=== PATIENT | male | born 1960 | race American Indian/Alaskan Native ===

== ENCOUNTER 2021-05-14 09:06 | Emergency (ER) | payer SELFPAY ==
[2021-05-14] MEDS ORDERED: MECLIZINE 25 MG TAB PO ONE (09:20)
[2021-05-14] MEDS ORDERED: SODIUM CHLORIDE 0.9% 1000 ML 1,000 ML IV ONE (09:22)
[2021-05-14] MEDS ORDERED: ONDANSETRON 4 MG/2 ML INJ IV ONE (09:22)
--- NOTE | 2021-05-14 09:26 | Emergency Department Report ---
HPI - General Chief Complaint: Dizziness Time Seen by Provider: 05/14/21 09:08 - HPI HPI: 60-year-old -[place] male presents to the emergency department via EMS from home with complaint of some dizziness/lightheadedness that started this morning. It is associated with some nausea without vomiting. He denies any headache, vision change, slurred speech, numbness or paresthesias, chest pain, shortness of breath, abdominal pain. He denies any past medical history but also admits that he does not follow with a primary care physician and has not for "many years." He did not take anything for symptoms prior to presentation. He describes the dizziness/lightheadedness as "if I am going to pass out." Overall the patient just says "I feel bad." No recent travel or sick contacts at home. Patient denies any tobacco or illicit drug use. He denies any history of daily alcohol use or dependence. ED Past Medical Hx - Past Medical History Previous Medical History?: No - Surgical History Past Surgical History?: No - Medications Home Medications: Home Medications Medication Instructions Recorded Confirmed Last Taken Type Meclizine [Antivert] 25 mg PO TID PRN #15 tablet 05/14/21 Unknown Rx ED Review of Systems ROS: Stated complaint: DIZZINESS Other details as noted in HPI Comment: All other systems reviewed and negative Constitutional: weakness. denies: chills, fever Eyes: denies: eye pain, vision change ENT: denies: ear pain, throat pain Respiratory: denies: cough, shortness of breath Cardiovascular: denies: chest pain, palpitations Gastrointestinal: nausea. denies: abdominal pain, vomiting Genitourinary: denies: dysuria, discharge Musculoskeletal: denies: back pain, arthralgia Skin: denies: rash, lesions Neurological: other (Dizziness/lightheadedness). denies: headache Physical Exam - Physical Exam Vital Signs: Vital Signs 05/14/21 09:09 Temperature 97 F L Pulse Rate 69 Respiratory 16 Rate Blood Pressure 155/78 [Left] O2 Sat by Pulse 100 Oximetry Physical Exam: GENERAL: The patient is well-developed well-nourished. HENT: Normocephalic. Atraumatic. Patient has moist mucous membranes. EYES: Extraocular motions are intact. Pupils equal reactive to light bilaterally. Horizontal nystagmus. NECK: Supple. Trachea is midline. CHEST/LUNGS: Clear to auscultation. There is no respiratory distress noted. HEART/CARDIOVASCULAR: Regular. There is no tachycardia. There is no murmur. ABDOMEN: Abdomen is soft, nontender. Patient has normal bowel sounds. There is no abdominal distention. SKIN: Skin is warm and dry. NEURO: The patient is awake, alert, and oriented. The patient is cooperative. The patient has no focal neurologic deficits. Normal speech. No facial asymmetry. Cranial nerves II through XII grossly intact. MUSCULOSKELETAL: There is no tenderness or deformity. There is no limitation range of motion. ED Course Vital Signs 05/14/21 09:09 Temperature 97 F L Pulse Rate 69 Respiratory 16 Rate Blood Pressure 155/78 [Left] O2 Sat by Pulse 100 Oximetry ED Medical Decision Making - Lab Data Result diagrams: 05/14/21 09:27 05/14/21 09:27 - EKG Data -: EKG Interpreted by In EKG shows normal: sinus rhythm, axis (Left axis deviation), intervals, QRS complexes (Q waves to the septal and inferior leads), ST-T waves (Nonspecific ST-T waves) Rate: normal - EKG Data When compared to previous EKG there are: previous EKG unavailable Interpretation: other (Sinus rhythm at 62 bpm, left axis deviation, normal inte rvals, Q waves to the septal and inferior leads. Nonspecific ST T waves.) - Radiology Data Radiology results: report reviewed CT head/brain wo con INDICATION / CLINICAL INFORMATION: 60 years Male; dizziness, lightheaded. TECHNIQUE: Routine CT head without contrast. All CT scans at this location are performed using CT dose reduction for ALARA by means of automated exposure control. COMPARISON: None. FINDINGS: BRAIN / INTRACRANIAL CONTENTS: The brain parenchyma appears to demonstrate appropriate attenuation for age. The ventricular system is within normal limits in size and configuration. There is no clear CT evidence of acute intracranial hemorrhage or significant mass effect. ORBITS: No significant abnormality of visualized orbits. SINUSES / MASTOIDS: There is mild mucosal thickening within the ethmoid air cells along the visualized inferior maxillary sinuses. CRANIOCERVICAL JUNCTION: No significant abnormality. ADDITIONAL FINDINGS: None. IMPRESSION: 1. There is no CT evidence of acute intracranial process. CT angio head INDICATION / CLINICAL INFORMATION: 60 years Male; Dizziness, Lightheaded, evaluate posterior circ 100 ml omni 350. TECHNIQUE: Thin cut axial images obtained through the head during IV bolus contrast administration. Sagittal, coronal, and 3 plane MIP reconstructions performed by the technologist. NASCET type criteria used evaluate stenoses. Automated exposure control utilized for radiation reduction purposes. COMPARISON: None available. FINDINGS: INTERNAL CAROTID ARTERIES: There is no significant focal stenosis involving distal internal carotid arteries by NASCET criteria. 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 There is no significant focal narrowing of the basilar artery. CEREBRAL ARTERIES: There is hypoplasia of the A1 segment of the right AMALIA which also represents a developmental variant. There is no significant stenosis involving proximal cerebral arteries or evidence of large vessel occlusion. ANEURYSM: The findings appear most consistent with incidental infundibulum of the left posterior communicating artery at. ADDITIONAL FINDINGS: Small mucosal thickening within the ethmoid and inferior maxillary sinuses. IMPRESSION: There is no CTA evidence of large vessel occlusion CT angio neck INDICATION / CLINICAL INFORMATION: 60 years Male; Dizziness, Lightheaded, evaluate posterior circ 100 ml omni 350 . TECHNIQUE: Thin cut axial images obtained through the head during IV bolus contrast administration. Sagittal, coronal, and 3 plane MIP reconstructions performed by the technologist. NASCET type criteria used evaluate stenoses. All CT scans at this location are performed using CT dose reduction for ALARA by means of automated exposure control. COMPARISON: None available. FINDINGS: CAROTID ARTERIES: The motion and beam hardening degrade the image quality. However, there is no significant stenosis involving the cervical carotid arteries by NASCET criteria. 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 The left vertebral artery is clearly dominant without significant focal narrowing. ARCH: There is no significant stenosis of the arch vessels. ADDITIONAL FINDINGS: Remainder of the surrounding soft tissues are grossly normal. IMPRESSION: There is no significant stenosis involving cervical carotid arteries by NASCET to criteria. 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 - Medical Decision Making This patient presented to the emergency department with a complaint of some dizziness/lightheadedness, nausea without vomiting, and feeling like he was going to pass out. On examination he does not have any focal, motor or sensory deficits and his cranial nerves are intact. EKG did not show any morphology consistent with ST elevation myocardial infarction. Chest x-ray does not show any pneumonia, pleural effusions, pneumothorax, widened mediastinum, or any other acute process. CT of the head without contrast does not show any hemorrhage, large vessel occlusion, or any other acute process. Labs have been mostly unremarkable including CBC, metabolic panel, normal thyroid function, negative troponin. The patient does have some slight hyperglycemia with a blood sugar of about 200 but there is no elevation of the anion gap and I do not have concern for diabetic ketoacidosis. The patient did not complain of any headache or any other strokelike symptoms but did have this dizziness/lightheadedness, near syncope, and had horizontal nystagmus. He was given some IV fluid resuscitation, Zofran, and a dose of meclizine. The patient had a CT angiography of the head and neck to look into possible posterior circulation stroke or occlusion but it resulted as negative. The patient was reevaluated multiple times over multiple hours and appears improved and the patient says "I am feeling great." He was seen ambulatory in the emergency department and both appears and feels stable. He will be discharged home to follow-up with primary care and has been given a prescription for some meclizine. He will return to the emergency department with any worsening of symptoms or with any acute distress. Critical Care Time: No Critical care attestation.: If time is entered above; I have spent that time in minutes in the direct care of this critically ill patient, excluding procedure time. ED Disposition Clinical Impression: Dizziness, Lightheaded Disposition: 01 HOME / SELF CARE / HOMELESS Is pt being admited?: No Condition: Stable Instructions: Near-Syncope, [id number], Dizziness Additional Instructions: Please follow-up with a primary care physician in the next few days. I have given you a referral for a local primary care physician, Dr. Fonseca, and a [facility]. Return to the emergency department with any worsening of your symptoms, new or concerning symptoms not addressed during this current emergency department visit, or with any acute distress. Prescriptions: Meclizine [Antivert] 25 mg PO TID PRN #15 tablet PRN Reason: Vertigo Referrals: ESTEFANIA FONSECA MD [Staff Physician] - 3-5 Days [facility] [Provider Group] - 3-5 Days Forms: Work/School Release Form(ED) Time of Disposition: 13:11
--- NOTE | 2021-05-14 09:51 | XRay Report ---
XR chest 1V ap INDICATION / CLINICAL INFORMATION: weakness. COMPARISON: None available. FINDINGS: SUPPORT DEVICES: None. HEART /PULMONARY VASCULATURE: Cardiac silhouette is enlarged without significant pulmonary vasculatur e congestion. LUNGS / PLEURA: Mild patchy bibasilar airspace opacities are present. No sizable pleural effusion. No pneumothorax. ADDITIONAL FINDINGS: No significant additional findings. IMPRESSION: Mild patchy bibasilar airspace opacities, may reflect edema or atypical infection. Signer Name: Theron Guevara MD Signed: 05/14/2021 9:47 AM Workstation Name: [id number]
--- NOTE | 2021-05-14 10:02 | Electrocardiograph Report ---
[facility] Test Date: 2021-05-14 Test Time: 09:16:09 Pat Name: CONSUELO dawn Department: Room: Gender: M Cloth Cutter: JOANNE : 1960 Requested By: ANDRE DEE Order Number: [id number] Reading MD: Les Mckeon Measurements Intervals [place] Rate: 59 P: 66 DC: 170 QRS: -14 QRSD: 99 T: 36 QT: 462 QTc: 458 Interpretive Statements Sinus bradycardia Probable left atrial enlargement Consider anterolateral infarct No previous ECG available for comparison Electronically Signed On 05-14-2021 10:02:19 EST by Les Mckeon
[2021-05-14 10:06] LABS: Alanine Aminotransferase 19 units/L (7-56); Albumin 4.1 g/dL (3.9-5); Blood Urea Nitrogen 8 mg/dL (9-20); Calcium 8.2 mg/dL (8.4-10.2); Hemolysis Index 9
--- NOTE | 2021-05-14 10:06 | Cat Scan Report ---
CT head/brain wo con INDICATION / CLINICAL INFORMATION: 60 years Male; dizziness, lightheaded. TECHNIQUE: Routine CT head without contrast. All CT scans at this location are performed using CT dos e reduction for ALARA by means of automated exposure control. COMPARISON: None. FINDINGS: BRAIN / INTRACRANIAL CONTENTS: The brain parenchyma appears to demonstrate appropriate attenuation fo r age. The ventricular system is within normal limits in size and configuration. There is no clear CT evidence of acute intracranial hemorrhage or significant mass effect. ORBITS: No significant abnormality of visualized orbits. SINUSES / MASTOIDS: There is mild mucosal thickening within the ethmoid air cells along the visualize d inferior maxillary sinuses. CRANIOCERVICAL JUNCTION: No significant abnormality. ADDITIONAL FINDINGS: None. IMPRESSION: 1. There is no CT evidence of acute intracranial process. Signer Name: Fermín Matthew MD Signed: 05/14/2021 10:02 AM Workstation Name: [id number]
[2021-05-14 10:10] LABS: Eosinophils # (Auto) 0.1 K/mm3 (0.0-0.4); Eosinophils % (Auto) 1.7 % (0.0-4.3); Monocytes # (Auto) 0.8 K/mm3 (0.0-0.8); Monocytes % (Auto) 13.2 % (0.0-7.3)
[2021-05-14 10:11] LABS: BUN/Creatinine Ratio 11
[2021-05-14 10:24] LABS: INR 0.89 (0.87-1.13)
[2021-05-14 11:17] LABS: Hematocrit 44.5 % (35.5-45.6); Hemoglobin 14.2 gm/dl (11.8-15.2); Mean Corpuscular Volume 96 fl (84-94); Red Blood Count 4.64 M/mm3 (3.65-5.03)
[2021-05-14 11:18] LABS: Basophils % (Auto) 0.6 % (0.0-1.8); Lymphocytes # (Auto) 2.8 K/mm3 (1.2-5.4); Lymphocytes % (Auto) 43.9 % (13.4-35.0); Mean Corpuscular HGB Conc 32 % (32-34); Platelet Count 251 K/mm3 (140-440)
--- NOTE | 2021-05-14 11:38 | Cat Scan Report ---
CT angio neck INDICATION / CLINICAL INFORMATION: 60 years Male; Dizziness, Lightheaded, evaluate posterior circ 100 ml omni 350 . TECHNIQUE: Thin cut axial images obtained through the head during IV bolus contrast administration. S agittal, coronal, and 3 plane MIP reconstructions performed by the technologist. NASCET type criteria used evaluate stenoses. All CT scans at this location are performed using CT dose reduction for ALAR A by means of automated exposure control. COMPARISON: None available. FINDINGS: CAROTID ARTERIES: The motion and beam hardening degrade the image quality. However, there is no signi ficant stenosis involving the cervical carotid arteries by NASCET criteria. 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 The left vertebral artery is clearly dominant without significant focal narrowing. ARCH: There is no significant stenosis of the arch vessels. ADDITIONAL FINDINGS: Remainder of the surrounding soft tissues are grossly normal. IMPRESSION: There is no significant stenosis involving cervical carotid arteries by NASCET to criteria. 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 Signer Name: Fermín Matthew MD Signed: 05/14/2021 11:34 AM Workstation Name: [id number]
--- NOTE | 2021-05-14 11:46 | Cat Scan Report ---
CT angio head INDICATION / CLINICAL INFORMATION: 60 years Male; Dizziness, Lightheaded, evaluate posterior circ 100 ml omni 350. TECHNIQUE: Thin cut axial images obtained through the head during IV bolus contrast administration. S agittal, coronal, and 3 plane MIP reconstructions performed by the technologist. NASCET type criteria used evaluate stenoses. Automated exposure control utilized for radiation reduction purposes. COMPARISON: None available. FINDINGS: INTERNAL CAROTID ARTERIES: There is no significant focal stenosis involving distal internal carotid a rteries by NASCET criteria. 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 There is no significant focal narrowing of the basilar artery. CEREBRAL ARTERIES: There is hypoplasia of the A1 segment of the right AMALIA which also represents a dev elopmental variant. There is no significant stenosis involving proximal cerebral arteries or evidence of large vessel occlusion. ANEURYSM: The findings appear most consistent with incidental infundibulum of the left posterior comm unicating artery at. ADDITIONAL FINDINGS: Small mucosal thickening within the ethmoid and inferior maxillary sinuses. IMPRESSION: There is no CTA evidence of large vessel occlusion Signer Name: Fermín Matthew MD Signed: 05/14/2021 11:41 AM Workstation Name: [id number]
[2021-05-14 13:30] VITALS: BP 139/71
== END 2021-05-14 13:30 | disposition home or self-care (01) ==
LOC: ED 09:06
DX: R42 Dizziness and giddiness (principal); Z79.899 Other long term (current) drug therapy
CPT/HCPCS: 36415; 70450; 70496; 70498; 71045; 80053; 84443; 84484; 85025; 85610; 93005; 96361; 96374; 99285; J2405; J7030; Q9967; 80320; Q0162; G0480